=== PATIENT | male | born 1990 | race African-American/Black ===

== ENCOUNTER 2020-02-22 16:33 | Emergency (ER) | payer OTHER ==
[~2020-02-22] VITALS: Ht 170.2 cm; Wt 61.2 kg
[2020-02-22 16:47] VITALS: BP 124/86; Ht 170.2 cm; Wt 61.2 kg
== END 2020-02-22 17:39 | disposition home or self-care (01) ==
LOC: ED 16:33
DX: Z02.89 Encounter for other administrative examinations (principal)